=== PATIENT | male | born 1980 | race Two or more races ===

== ENCOUNTER 2018-04-30 02:01 | Emergency (ER) | payer SELFPAY ==
--- NOTE | 2018-04-30 02:05 | NUR ---
TO BED 1 BIB PARAMEDICS C/O SYNCOPE, NO OBVIOUS TRAUMA NOTED. PT AAOX4 NO ACUTE DISTRESS NOTED, RESP EVEN AND UNLABORED. PLACE PT ON CARDIAC MONITORING, CONTINUOUS POX. PENDING ER MD BENSON.
--- NOTE | 2018-04-30 02:17 | NUR ---
bailey correa at bedside to deejay null.
--- NOTE | 2018-04-30 02:29 | NUR ---
PT MOM AND DAD AT BEDSIDE.
[2018-04-30] MEDS ORDERED: IV NS 0.9% 1,000 ML BAG IV ONE (02:30)
[2018-04-30] MEDS ORDERED: ONDANSETRON HCL/PF 4 MG/2 ML VIAL IVP ONE (02:30)
[2018-04-30] MEDS ORDERED: MECLIZINE HCL 25 MG TABLET PO ONE (02:30)
--- NOTE | 2018-04-30 02:36 | NUR ---
PT TRANSPORTED TO RADIOLOGY FOR CT HEAD.
[2018-04-30] MEDS ORDERED: ONDANSETRON HCL/PF 4 MG/2 ML VIAL ONE (02:38)
[2018-04-30 02:39] LABS: BASOPHILS % (AUTO) 0.6 % (0.0-2.0); EOSINOPHILS % (AUTO) 1.4 % (0.0-6.0); HEMATOCRIT 29 % (39-51); LYMPHOCYTES # (AUTO) 2.6 /CMM (0.8-4.8); LYMPHOCYTES % (AUTO) 38.1 % (20.0-44.0); MEAN CORPUSCULAR HGB CONC 34 g/dl (31.0-36.0); MEAN CORPUSCULAR VOLUME 89 fL (80-96); MONOCYTES # (AUTO) 0.6 /CMM (0.1-1.30); MONOCYTES % (AUTO) 9.1 % (2.0-12.0); NEUTROPHILS # (AUTO) 3.5 /CMM (1.8-8.9); NEUTROPHILS % (AUTO) 50.8 % (43.0-81.0); PLATELET COUNT (AUTO) 219 /CMM (150-450); RED BLOOD CELL COUNT(AUTO) 3.29 MIL/uL (4.5-6.0); WHITE BLOOD COUNT (AUTO) 6.9 K/uL (4.3-11.0)
[2018-04-30] MEDS ORDERED: MECLIZINE HCL 12.5 MG TABLET ONE (02:39)
[2018-04-30 02:46] LABS: CALCIUM, SERUM 7.6 mg/dL (8.5-10.1); CARBON DIOXIDE 28 mmol/L (21-32); CHLORIDE 108 mmol/L (98-107); GLUCOSE 101 mg/dL (74-106); POTASSIUM 4.3 mmol/L (3.5-5.1); SODIUM SERUM 143 mmol/L (136-145); UREA NITROGEN, BLOOD 46 mg/dL (7-18)
[2018-04-30 02:54] LABS: ALANINE AMINOTRANSFERASE 29 U/L (12-78); ALBUMIN 2.9 g/dL (3.4-5.0); ALKALINE PHOSPHATASE 51 U/L (46-116); ASPARTATE AMINOTRANSFERASE 16 U/L (15-37); BILIRUBIN,DIRECT 0.1 mg/dL (0.0-0.2); BILIRUBIN,TOTAL 0.3 mg/dL (0.2-1.0); TOTAL PROTEIN, SERUM 5.5 g/dL (6.4-8.2)
--- NOTE | 2018-04-30 04:03 | NUR ---
PT C/O NAUSEA. ER MD MADE AWARE WITH ORDERS RECEIVED. WILL CARRY OUT ORDERS.
[2018-04-30] MEDS ORDERED: ONDANSETRON 4 MG TAB.RAPDIS ONE (04:07)
--- NOTE | 2018-04-30 04:13 | NUR ---
PT MEDICATED ORDERED.
[2018-04-30] MEDS ORDERED: ONDANSETRON 4 MG TAB.RAPDIS SL ONE (04:30)
--- NOTE | 2018-04-30 04:34 | NUR ---
IV removed. Catheter intact and site benign. Pressure and 4x4 applied to site. No bleeding noted. Patient discharged to home in stable condition. Written and verbal after care instructions given. Patient verbalizes understanding of instruction. ambulatory with a steady gait noted. pt mom and dad at bedside to take pt home.
[2018-04-30 04:36] VITALS: BP 121/69
== END 2018-04-30 04:41 | disposition home or self-care (01) ==
LOC: ER 02:07
DX: R55 Syncope and collapse (principal)
CPT/HCPCS: 36415; 70450-TC; 71045-TC; 80048-TC; 80076-TC; 82962-TC; 84484-TC; 85025-TC; 85730-TC; 86850-TC; J2405; J7030; J8597; Q0162